=== PATIENT | male | born 1990 | race Caucasian/White ===

== ENCOUNTER 2020-08-02 11:08 | Observation (INO) ==
--- NOTE | 2020-08-02 12:01 | XRay Report ---
XR chest 1V portable CLINICAL HISTORY: aspiration pneumonia COMPARISON STUDY: No previous studies for comparison. FINDINGS: The cardiac and mediastinal contours are normal. There is no evidence of focal pulmonary co nsolidation. There is no evidence of failure. No pleural effusions are visualized.[ IMPRESSION: No active disease in the chest. ACT 112: Negative or not required by law. Electronically signed by: Alex Burks M.D. 08/02/2020 11:59 AM
[2020-08-02] MEDS ORDERED: ALBUT/IPRATROP 3MG/0.5MG NEB 3 ML VIAL NEB ONE (12:24)
[2020-08-02] MEDS ORDERED: methylPREDNISolone 125 MG/2 ML VIAL IV STA (12:28)
[2020-08-02] MEDS ORDERED: PIPERACILLIN/TAZOBACTAM 4.5 GM/120 ML BAG IV ONE (12:28)
[2020-08-02] MEDS ORDERED: NICOTINE 21 MG/24 HR TDSY TD STA (12:28)
[2020-08-02] MEDS ORDERED: levoFLOXacin/D5W 750 MG/150 ML BAG IV STA (12:28)
[2020-08-02] MEDS ORDERED: PIPERACILL/TAZOBAC CONSULT ACTIVE PRN (12:28)
[2020-08-02] MEDS ORDERED: HYDROmorphone INJ 1 MG/ML SYRINGE IV PRN (12:34)
[2020-08-02] MEDS ORDERED: ONDANSETRON INJ 2 MG/ML 2 ML VIAL IV STA (12:34)
[2020-08-02] MEDS ORDERED: ACETAMINOPHEN 1,000 MG/100 ML VIAL IV STA (12:34)
[2020-08-02 12:57] LABS: Basophils # (auto) 0.01 K/uL (0-0.2); Basophils % (auto) 0.1 %; Eosinophils # (auto) 0.01 K/uL (0-0.5); Eosinophils % (auto) 0.1 %; Hematocrit (blood only) 47.3 % (42-52); Hemoglobin 16.8 g/dL (14.0-18.0); Immature Granulocytes # (auto) 0.06 K/uL (0.00-0.02); Immature Granulocytes % (auto) 0.4 %; Lymphocytes # (auto) 0.73 K/uL (1.2-3.4); Mean Corpuscular Hgb Conc 35.5 g/dL (32-36); Mean Corpuscular Volume 92.9 fL (80-100); Mean Platelet Volume 12.4 fL (7.4-10.4); Monocytes % (auto) 2.8 %; Neutrophils # (auto) 13.32 K/uL (1.4-6.5); Neutrophils % (auto) 91.6 %; Platelet Count 228 K/uL (130-400); RDW Coefficient of Variation 12.5 % (11.5-14.5); RDW Standard Deviation 42.5 fL (36.4-46.3); Red Blood Count 5.09 M/uL (4.7-6.1); White Blood Count 14.53 K/uL (4.8-10.8)
[2020-08-02 13:09] LABS: INR 1.1 (0.9-1.1); Partial Thromboplastin Time 27.5 Seconds (21.0-31.0); Prothrombin Time 11.1 Seconds (9.0-12.0)
[2020-08-02 13:16] LABS: Alanine Aminotransferase 74 U/L (12-78); Albumin Level 3.7 gm/dl (3.4-5.0); Aspartate Aminotransferase 53 U/L (15-37); BUN Creatinine Ratio 13.2 (10-20); Blood Urea Nitrogen 14 mg/dl (7-18); Calcium 7.9 mg/dl (8.5-10.1); Carbon Dioxide 22 mmol/L (21-32); Chloride 106 mmol/L (98-107); Creatinine Clr Calc Pharmacy 105.2 ml/min; Est GFR (African American) 112.5; Glucose 117 mg/dl (70-99); Potassium 4.3 mmol/L (3.5-5.1); Sodium 136 mmol/L (136-145)
[2020-08-02 13:21] LABS: Albumin Globulin Ratio 1.1 (0.9-2); Alkaline Phosphatase 102 U/L (45-117); Bilirubin,Total 2.1 mg/dl (0.2-1); Globulin 3.4 gm/dl (2.5-4.0); Total Protein 7.1 gm/dl (6.4-8.2); Troponin I < 0.015 ng/ml (0-0.045)
--- NOTE | 2020-08-02 15:23 | History & Physical Report ---
Date of Service August 02, 2020 Assessment & Plan (1) Hypoxia: Aim O2 sats > 94%, incentive spirometry (2) Aspiration pneumonitis: Further antibiotics for aspiration pneumonia deferred unless still having oxygen requirement tomorrow or other signs of pneumonia. (3) Anxiety: Continue his usual citalopram 20mg and aripiprazole 10mg PO daily. (4) GERD (gastroesophageal reflux disease): Continue famotidine 20mg PO daily Admission and Anticipated Discharge Date Admission Date: 08/02/2020 History of Present Illness Chief Complaint: Shortness of breath and hypoxia Primary Care Provider: Malik Machado Krys Garcia is a 30-year-old male who presents to the ER with shortness of breath and hypoxia after a vomiting episode after his operation today in the surgical center to remove pins from his foot. He reports not taking his usual medications yet this morning. No current shortness of breath but remains hypoxic in the ER therefore recommend admission overnight to assess for progression of aspiration pneumonia. He reports no active infection of the pins prior to removal. No known COVID-19 exposure and tested negative 5 days ago on pre-op screening. No nasal congestion, headache, diarrhea, abdominal pain, fever or chills. Allergies Allergy/AdvReac Type Severity Reaction Status Date / Time cyclobenzaprine AdvReac Unknown unable to Verified 08/02/20 13:02 take with current meds TOMATOES Allergy Unknown BECOMES Uncoded 08/02/20 13:02 NAUSEATED Home Medications Medication Instructions Recorded Confirmed Type aripiprazole 10 mg PO DAILY 08/02/20 08/02/20 History citalopram 20 mg PO DAILY 08/02/20 08/02/20 History famotidine 20 mg PO DAILY 08/02/20 08/02/20 History Past Med/Surg History Medical History Anxiety Social History Smoking Status: Current every day smoker Second Hand Exposure: Yes; Do You Dip or Chew Tobacco: No; Tobacco Cessation Education Requested by Patient: No Hx Alcohol Use: No Hx Substance Use: No Preferred Language: Danish Communication Ability: Effective Director [employer] Required: No Beliefs That Will Affect Care: None Current Living Situation: Family Other Information That Helps Us Care for You: No Feels Safe at Home: Yes Safety Concerns: Feels Safe At This Time Assistive Devices: Crutches Review of Systems Review of Systems: All systems reviewed & are unremarkable except as noted in HPI & below Physical Exam Constitutional: well developed and well nourished; no acute distress Eyes: + anicteric sclerae; normal pupil size ENMT: external ear and nose normal, oropharynx normal Respiratory: normal respiratory effort, lungs clear to auscultation Cardiovascular: RRR, no murmur, no edema Gastrointestinal (Abdomen): normal bowel sounds, soft, nontender, no hepatosplenomegaly Skin: Right ankle surgical dressing, not removed. Psychiatric: Orientation: alert and oriented x 3 Affect: euthymic affect Mood: + anxious mood Results & Data Results & Data ([facility]) Vital Signs (Past 12 Hours) Vital Signs Temp Pulse Pulse Resp BP BP Pulse Ox 08/02/20 13:19 73 18 97 08/02/20 13:11 71 22 132/79 98 08/02/20 13:00 98 08/02/20 11:20 94 08/02/20 11:14 36.8 C 88 24 144/87 H 83 L Diagnostic Findings XR chest 1V portable IMPRESSION: No active disease in the chest. Medications Administered ER medications given: Ondansetron 4 mg IV Acetaminophen 1 g IV Nicotine 21 mg patch Solu-Medrol 60 mg IV Zosyn 4.5 g IV Levaquin 750 mg IV DuoNeb 12 mL nebulizer Dilaudid 1 mg IV ECG Indication: SOB/dyspnea Rate (beats per minute): 89 Rhythm: normal sinus Findings: + other (Possible left atrial enlargement) Comparison ECG Date: no prior available Code Status & VTE Plan Code Status Full VTE Prophylaxis Plan VTE Prophylaxis will be ordered: No Reason for no VTE drug order: Treatment not indicated Reason for no VTE mechanical prophylaxis: Treatment not indicated PG Care Time/CCT Total # of Minutes Spent Total Time Spent with Patient: Total time spent is greater than 50% in coordination of care (as documented) at patient's floor/unit and/or counseling patient: Coding Level of Care Code 51489 OBS Care - Level 2 Diagnoses Hypoxia R09.02 Aspiration pneumonitis J69.0 Anxiety F41.9 GERD (gastroesophageal reflux disease) K21.9
[2020-08-02] MEDS ORDERED: ACETAMINOPHEN 1000 MG/100 ML IV IV ONE (15:42)
--- NOTE | 2020-08-02 15:59 | Electrocardiogram Report ---
Test Reason : Blood Pressure : / mmHG Vent. Rate : 089 BPM Atrial Rate : 089 BPM P-R Int : 170 ms QRS Dur : 076 ms QT Int : 352 ms P-R-T Axes : 039 023 056 degrees QTc Int : 428 ms Normal sinus rhythm Possible Left atrial enlargement Borderline ECG No previous ECGs available Confirmed by Conor Dejesus ([id number]) on 08/02/2020 3:59:24 PM Referred By: REFERRED SELF Confirmed By:Conor Dejesus
[2020-08-02] MEDS ORDERED: ARIPiprazole 10 MG TAB PO STA (16:11)
[2020-08-02] MEDS ORDERED: CITALOPRAM 20 MG TAB PO STA (16:12)
[2020-08-02] MEDS ORDERED: FAMOTIDINE 20 MG TAB PO STA (16:12)
[2020-08-02] MEDS ORDERED: NICOTINE POLACRILEX 2 MG GUM MT PRN (19:30)
[2020-08-02 21:48] LABS: Appearance Urine Clear (Clear); Bilirubin Urine Negative (Negative); Blood Urine Negative (Negative); Color Urine Yellow; Glucose Urine UA Negative (Negative); Ketones Urine Negative (Negative); Leukocyte Esterase Urine Negative (Negative); Nitrite Urine Negative (Negative); Protein Urine Negative (Negative); Specific Gravity Urine 1.007 (1.000-1.030); Urobilinogen Urine Negative (Negative); pH Urine 5.5 (4.5-7.5)
[2020-08-02] MEDS ORDERED: LORazepam 0.5 MG TAB PO PRN (21:50)
[2020-08-03 06:58] LABS: Basophils # (auto) 0.01 K/uL (0-0.2); Basophils % (auto) 0.1 %; Hematocrit (blood only) 45.9 % (42-52); Immature Granulocytes # (auto) 0.04 K/uL (0.00-0.02); Immature Granulocytes % (auto) 0.3 %; Lymphocytes # (auto) 1.69 K/uL (1.2-3.4); Lymphocytes % (auto) 10.7 %; Mean Corpuscular Hemoglobin 32.6 pg (25-34); Mean Corpuscular Hgb Conc 34.9 g/dL (32-36); Mean Corpuscular Volume 93.5 fL (80-100); Mean Platelet Volume 12.2 fL (7.4-10.4); Monocytes # (auto) 1.01 K/uL (0.11-0.59); Monocytes % (auto) 6.4 %; Neutrophils # (auto) 12.99 K/uL (1.4-6.5); Neutrophils % (auto) 82.5 %; Platelet Count 253 K/uL (130-400); RDW Coefficient of Variation 12.6 % (11.5-14.5); RDW Standard Deviation 42.7 fL (36.4-46.3); Red Blood Count 4.91 M/uL (4.7-6.1); White Blood Count 15.74 K/uL (4.8-10.8)
[2020-08-03 07:28] LABS: BUN Creatinine Ratio 13.2 (10-20); Calcium 9.2 mg/dl (8.5-10.1); Creatinine Clr Calc Pharmacy 98.5 ml/min; Est GFR (African American) 103.9; Est GFR (Non-African American) 89.6
[2020-08-03] MEDS: oxyCODONE HCL IR 5 MG TAB (IMMEDIATE RELEASE) PO PRN ×2 (08:30→13:03)
[2020-08-03] MEDS ORDERED: NICOTINE 21 MG/24 HR TDSY TD SCH (09:00)
[2020-08-03] MEDS ORDERED: CITALOPRAM 20 MG TAB PO SCH (09:00)
[2020-08-03] MEDS ORDERED: FAMOTIDINE 20 MG TAB PO SCH (09:00)
[2020-08-03] MEDS ORDERED: ARIPiprazole 10 MG TAB PO SCH (09:00)
[2020-08-03] MEDS ORDERED: CHLORASEPTIC 1.4% SOLN 180 ML BTL MT PRN (12:00)
--- NOTE | 2020-08-03 12:22 | Discharge Summary ---
Date of Service August 03, 2020 Admission HPI Per Admitting Provider Krys Garcia is a 30-year-old male who presents to the ER with shortness of breath and hypoxia after a vomiting episode after his operation today in the surgical center to remove pins from his foot. He reports not taking his usual medications yet this morning. No current shortness of breath but remains hypoxic in the ER therefore recommend admission overnight to assess for progression of aspiration pneumonia. He reports no active infection of the pins prior to removal. No known COVID-19 exposure and tested negative 5 days ago on pre-op screening. No nasal congestion, headache, diarrhea, abdominal pain, fever or chills. Principal Diagnosis Pt states he is feeling much better. He has not been SOB or needed oxygen since yesterday. He is eating without issue, although he notes a sore throat. He is also noting a smear of blood in his sputum when he coughs. No large clots or stand alone blood, just with other mucous and not every time time he spits. Pt denies fever, chest pain, abd pain, n/v/c/d, LE pain or swelling. Discharge Exam Constitutional WD/WN, vitals as above Eyes normal visual queen by confrontation and + anicteric sclerae Neck normal visual inspection and trachea midline Respiratory normal respiratory effort, lungs clear to auscultation Cardiovascular Rate/Rhythm: regular rate and regular rhythm Gastrointestinal (Abdomen) Inspection/Auscultation: abdomen not distended Percussion/Palpation: abdomen soft; abdomen nontender Musculoskeletal Head/Neck/Chest: normocephalic and head atraumatic Skin no rashes, warm and dry Neurologic awake; not confused Speech / Cognition: normal speech Psychiatric A+Ox3, euthymic affect Discharge Data Allergies Allergy/AdvReac Type Severity Reaction Status Date / Time cyclobenzaprine AdvReac Unknown unable to Verified 08/02/20 13:02 take with current meds TOMATOES Allergy Unknown BECOMES Uncoded 08/02/20 13:02 NAUSEATED Consultations 08/02/20 15:06 ED Decision to Admit Stat Hospital Course (1) Hypoxia: Aim O2 sats > 94%, incentive spirometry (2) Aspiration pneumonitis: Further antibiotics for aspiration pneumonia deferred unless still having oxygen requirement tomorrow or other signs of pneumonia As noted on CXR Pt does have a slightly elevated WBC in the setting of surgery and above issues, likely reactionary Afebrile Procal neg on admission, however this was likely drawn too close to the aspiration to give complete merit. Advised pt as noted below that there is a chance that he has a full PNA, but given he has not needed further O2 or had any SOB, it is less likely. Advised to seek further care as noted below if issues arise. Advised to use IS at home for the next 2-4 weeks Blood streaked sputum likely due to rapid extubation with aspiration event Pt advised to monitor this and return to ED if having more krystyna bleeding Advised that this could be irritated further with ongoing smoking Pt states he is down to 5 cigs/day from about 1.5ppd as recently as last month Chloraseptic spray for post-intubation throat irritation (3) Anxiety: Continue his usual citalopram 20mg and aripiprazole 10mg PO daily. (4) GERD (gastroesophageal reflux disease): Continue famotidine 20mg PO daily Total Time Total Time Spent Total Time Spent (In Minutes): >30 Total Time Includes: Examination of the Patient, Discharge Planning, Medication Reconciliation and Other Discharge Plan Discharge Items Patient Disposition: Home - Self-Care Reason For Visit: HYPOXIA, ASPIRATION PNEUMONITIS Discharge Diagnosis: Aspiration pneumonitis Activity: As commented below Activity Comment: as directed by your surgeon Non-emergency contact: Primary Care Provider and Surgeon Call non-emergency contact if: you have any medication questions, your symptoms worsen and your pain is concerning for you Follow-up/Referrals: Malik Machado D.O. [Primary Care Provider] - 08/09/20 1:00 pm Diet: Regular Addtl Attending Provider Instructions: As we discussed, it does not appear that you have a pneumonia at present, but this can take several days to develop after you have an aspiration event while intubated. If you develop fever, cough, chills, trouble breathing, or chest pain, you should seek care with your PCP, an urgent care, or go to the ED. You should also continue to use your incentive spirometer 10 times an hour for the next 3-4 weeks. This will help your lungs to recover from the aspiration event. Pending Studies at Discharge: Yes Studies:: Blood culture Stand-Alone Forms: My [employer], Smoking Cessation Medications and DC Order Prescriptions: New Sore Throat (phenol) 1.4 % Aerosol,Liguori 2 spray MT Q4H PRN (Reason: sore throat) Qty: 177 RF: 0 Continued citalopram 20 mg tablet 20 mg PO DAILY RF: 0 famotidine 20 mg tablet 20 mg PO DAILY RF: 0 aripiprazole 10 mg tablet 10 mg PO DAILY RF: 0 Discharge Orders: Discharge Order (Routine); Ordered 08/03/20 Ordered By: Princess Oliveira/Other Patient Handouts: DVT Post Op Prevention Admission Data Admit Date/Time: 08/02/20 15:37 Attending Provider: Princess Baker Admit Provider: Lavelle Duron Primary Care Provider: Malik Machado Other Providers: Lavelle Duron Other Interventions: Discharge Summary Assessment (RN) Last Done: 08/03/20 14:04 Coding Level of Care Code D/C Day Management >30 mins Diagnoses Hypoxia R09.02 Aspiration pneumonitis J69.0 Anxiety F41.9 GERD (gastroesophageal reflux disease) K21.9
--- NOTE | 2020-08-04 13:44 | Emergency Department Note ---
History of Present Illness General Chief complaint: Shortness of Breath/Dyspnea Time Seen by Provider: 08/02/20 11:25 Source: patient, RN notes reviewed and old records reviewed Mode of arrival: ambulatory Limitations: no limitations History of Present Illness Provider complaint: aspiration Onset (ago): hour(s) 1 Location: chest Maximum Pain Intensity: 8 Current Pain Intensity: 8 Quality: + aching Relieved By: + immobilization and + rest Exacerbated By: + movement Associated symptoms: + nausea/vomiting and + shortness of breath Treatments prior to arrival: other (oxygen) This is a 30-year-old male who presents emergency department complaining of sabine rtness of breath. Patient had a surgery done at the surgical clinic today. Per both EMS as well as doctors reports the patient may have had an aspiration event as he remained hypoxic after his surgery. He was given a breathing treatment in route. Upon arrival to the emergency department patient is complaining of right ankle pain. He reports immobilization makes the pain better however movement makes the pain worse. Home Medications Medication Instructions Recorded Confirmed Type aripiprazole 10 mg PO DAILY 08/02/20 08/02/20 History citalopram 20 mg PO DAILY 08/02/20 08/02/20 History famotidine 20 mg PO DAILY 08/02/20 08/02/20 History phenol [Sore Throat (phenol)] 2 spray MT Q4H PRN #177 ml 08/03/20 Rx Allergies Allergy/AdvReac Type Severity Reaction Status Date / Time cyclobenzaprine AdvReac Unknown unable to Verified 08/02/20 13:02 take with current meds TOMATOES Allergy Unknown BECOMES Uncoded 08/02/20 13:02 NAUSEATED Past Med/Surg History Medical History Anxiety GERD (gastroesophageal reflux disease) Social History Smoking Status: Current every day smoker Second Hand Exposure: Yes; Do You Dip or Chew Tobacco: No; Tobacco Cessation Education Requested by Patient: No Hx Alcohol Use: No Hx Substance Use: No Preferred Language: Indonesian Communication Ability: Effective It Security Analyst Required: No Beliefs That Will Affect Care: None Current Living Situation: Family Other Information That Helps Us Care for You: No Feels Safe at Home: Yes Safety Concerns: Feels Safe At This Time Assistive Devices: Crutches Review of Systems A total of 10 systems reviewed and were otherwise negative Physical Exam VITAL SIGNS - Vital signs and nursing notes were reviewed. GENERAL - 30-year-old male appearing stated age who is in no acute distress. Communicates well with provider and answers questions appropriately. SKIN - Without rashes. HEAD - NC/AT. EYES - PERRL with EOMI bilaterally. Sclera anicteric. Palpebral conjunctiva pink and moist with no injection noted. EARS - No deformities of external structures noted on gross examination bilaterally. No pain elicited with palpation of the tragus bilaterally. External auditory canals without discharge or otorrhea. Tympanic membranes pearly degroot without retraction or bulging. No fluid or purulent material visualized behind the TM. Handle of malleus, umbo, cone of light, pars tensa/flaccid all easily visualized. NOSE - Midline and without cyanosis. No epistaxis or purulent drainage noted. Septum midline without deviation or septal hematoma noted. MOUTH/OROPHARYNX - Without perioral cyanosis. Buccal mucosa pink and moist and without leukoplakia. Tongue midline with equal elevation of palate bilaterally. No tonsillar hypertrophy, erythema, or exudates noted. dentition noted. NECK - Neck with FROM. Supple to palpation. lymphadenopathy noted. No nuchal rigidity. LUNGS - Chest wall symmetric without accessory muscle use, intercostals retrac tions, or central cyanosis. Normal vesicular breath sounds CTA B/L. No wheezes, rales, or rhonchi appreciated. CARDIAC - RRR with S1/S2. No murmur, rubs, or gallops appreciated. ABDOMEN - Abdominal contour without pulsations or visible masses. BS normoactive all four quadrants. No tenderness, palpable masses, hepatosplenomegaly, or ascites noted. EXTREMITIES - No clubbing or peripheral cyanosis. No pretibial edema present. +3/5 radial, posterior tibial, and dorsalis pedis pulses palpated throughout. +5/5 strength noted in UE/LE bilaterally. NEUROLOGIC - Cranial nerves II through XII grossly intact. Sensory intact to light touch throughout. Patellar reflexes +2/4. PSYCH - A&Ox3 and cooperates fully with examiner. Pt is very pleasant and interacts well with examiner. Course Administered Medications Discontinued Medications Acetaminophen (Acetaminophen 1000 Mg/100 Ml Iv) Confirm Administered Dose 1,000 mg IV .STK-MED ONE Stop: 08/02/20 15:43 Last Admin: 08/02/20 15:46 Dose: Not Given Documented by: [id number] Albuterol (Albut/Ipratrop 3mg/0.5mg Neb 3 Ml Vial) 12 ml NEB ONE ONE Stop: 08/02/20 12:25 Last Admin: 08/02/20 13:19 Dose: 12 ml Documented by: [id number] Aripiprazole (Aripiprazole 10 Mg Tab) 10 mg PO ONE STA Stop: 08/02/20 16:12 Last Admin: 08/02/20 16:26 Dose: 10 mg Documented by: [id number] Aripiprazole (Aripiprazole 10 Mg Tab) 10 mg PO DAILY MARJORIE Stop: 09/02/20 08:59 Last Admin: 08/03/20 08:31 Dose: 10 mg Documented by: [id number] Citalopram Hydrobromide (Citalopram 20 Mg Tab) 20 mg PO NOW STA Stop: 08/02/20 16:13 Last Admin: 08/02/20 16:26 Dose: 20 mg Documented by: [id number] Citalopram Hydrobromide (Citalopram 20 Mg Tab) 20 mg PO DAILY MARJORIE Stop: 09/02/20 08:59 Last Admin: 08/03/20 08:32 Dose: 20 mg Documented by: [id number] Famotidine (Famotidine 20 Mg Tab) 20 mg PO NOW STA Stop: 08/02/20 16:13 Last Admin: 08/02/20 16:27 Dose: 20 mg Documented by: [id number] Famotidine (Famotidine 20 Mg Tab) 20 mg PO DAILY MARJORIE Stop: 09/02/20 08:59 Last Admin: 08/03/20 08:32 Dose: 20 mg Documented by: [id number] Hydromorphone HCl (Hydromorphone Inj 1 Mg/Ml Syringe) 1 mg IV Q15M PRN PRN Reason: Pain Stop: 08/16/20 12:33 Last Admin: 08/02/20 12:54 Dose: 1 mg Documented by: [id number] Piperacillin Sod/Tazobactam Sod (Zosyn) 4.5 gm in 120 mls @ 240 mls/hr IV NOW ONE Stop: 08/02/20 12:57 Last Infusion: 08/02/20 14:37 Dose: 0 mls/hr Documented by: [id number] Admin: 12/07/20 12:59 Dose: 240 mls/hr Documented by: [id number] Levofloxacin/Dextrose (Levaquin/D5w) 750 mg in 150 mls @ 100 mls/hr IV NOW STA Stop: 08/02/20 13:57 Last Infusion: 08/02/20 16:05 Dose: 0 mls/hr Documented by: [id number] Admin: 08/02/20 14:35 Dose: 100 mls/hr Documented by: [id number] Acetaminophen (Ofirmev) 1,000 mg in 100 mls @ 400 mls/hr IV NOW STA Stop: 08/02/20 12:48 Last Infusion: 08/02/20 14:25 Dose: 0 mls/hr Documented by: [id number] Admin: 08/02/20 14:00 Dose: 400 mls/hr Documented by: [id number] Lorazepam (Lorazepam 0.5 Mg Tab) 0.5 mg PO Q4H PRN PRN Reason: Anxiety Stop: 09/01/20 21:49 Last Admin: 08/02/20 22:05 Dose: 0.5 mg Documented by: [id number] Methylprednisolone (Methylprednisolone 125 Mg/2 Ml Vial) 60 mg IV NOW STA Stop: 08/02/20 12:29 Last Admin: 08/02/20 12:57 Dose: 60 mg Documented by: [id number] Miscellaneous (Remove Nicoderm Patch) 1 ea N/A DAILY@[id number] [facility] Stop: 09/02/20 08:58 Last Admin: 08/03/20 08:31 Dose: 1 ea Documented by: [id number] Nicotine (Nicotine 21 Mg/24 Hr Tdsy) 21 mg TD NOW STA Stop: 08/02/20 12:29 Last Admin: 08/02/20 12:53 Dose: 21 mg Documented by: [id number] Nicotine (Nicotine 21 Mg/24 Hr Tdsy) 21 mg TD QAM [facility] Stop: 09/02/20 08:59 Last Admin: 08/03/20 08:34 Dose: Not Given Documented by: [id number] Nicotine Polacrilex (Nicotine Polacrilex 2 Mg Gum) 1 piece MT PRN PRN PRN Reason: nicotine craving Stop: 09/01/20 19:29 Last Admin: 08/03/20 08:32 Dose: 1 piece Documented by: [id number] Ondansetron HCl (Ondansetron Inj 2 Mg/Ml 2 Ml Vial) 4 mg IV NOW STA Stop: 08/02/20 12:35 Last Admin: 08/02/20 12:57 Dose: 4 mg Documented by: [id number] Oxycodone HCl (Oxycodone Hcl Ir 5 Mg Tab (Immediate Release)) 5 mg PO Q4H PRN PRN Reason: Pain Stop: 08/16/20 19:13 Last Admin: 08/03/20 13:03 Dose: 5 mg Documented by: [id number] Admin: 08/03/20 08:30 Dose: 5 mg Documented by: [id number] Medical Decision Making Differential Diagnosis Reactive airway disease, pneumonia, pneumothorax, COPD, CHF, infections, cardiac ischemia, pulmonary embolism, musculoskeletal, gastrointestinal, as well as other pathologies. Medical Records Attestation: I reviewed the patient's medical records. Home Medications Current Medication List: was personally reviewed by me Laboratory Data Attestation: I reviewed the patient's lab results. Result diagrams: 08/03/20 06:37 08/03/20 06:37 Lab Results 08/02/20 08/02/20 08/02/20 Range/Units 12:45 12:45 12:45 WBC 14.53 H (4.8-10.8) K/uL RBC 5.09 (4.7-6.1) M/uL Hgb 16.8 (14.0-18.0) g/dL Hct 47.3 (42-52) % MCV 92.9 (80-100) fL MCH 33.0 (25-34) pg MCHC 35.5 (32-36) g/dL RDW Std Deviation 42.5 (36.4-46.3) fL RDW Coeff of Lea 12.5 (11.5-14.5) % Plt Count 228 (130-400) K/uL MPV 12.4 H (7.4-10.4) fL Immature Gran % (Auto) 0.4 % Neut % (Auto) 91.6 % Lymph % (Auto) 5.0 % Lee % (Auto) 2.8 % Eos % (Auto) 0.1 % Baso % (Auto) 0.1 % Neut # (Auto) 13.32 H (1.4-6.5) K/uL Lymph # (Auto) 0.73 L (1.2-3.4) K/uL Lee # (Auto) 0.40 (0.11-0.59) K/uL Eos # (Auto) 0.01 (0-0.5) K/uL Baso # (Auto) 0.01 (0-0.2) K/uL Immature Gran # (Auto) 0.06 H (0.00-0.02) K/uL PT 11.1 (9.0-12.0) Seconds INR 1.1 (0.9-1.1) APTT 27.5 (21.0-31.0) Seconds PTT Ratio 1.0 Sodium 136 (136-145) mmol/L Potassium 4.3 (3.5-5.1) mmol/L Chloride 106 (98-107) mmol/L Carbon Dioxide 22 (21-32) mmol/L Anion Gap 8.0 (3-11) BUN 14 (7-18) mg/dl Creatinine 1.03 (0.6-1.4) mg/dl Est Cr Clr Drug Dosing 105.2 ml/min Est GFR ( Amer) 112.5 Est GFR (Non-Af Amer) 97.0 BUN/Creatinine Ratio 13.2 (10-20) Glucose 117 H (70-99) mg/dl Lactate (0.4-2.0) mmol/L Calcium 7.9 L (8.5-10.1) mg/dl Magnesium 2.0 (1.8-2.4) mg/dl Total Bilirubin 2.1 H (0.2-1) mg/dl AST 53 H (15-37) U/L ALT 74 (12-78) U/L Alkaline Phosphatase 102 (45-117) U/L Troponin I < 0.015 (0-0.045) ng/ml Total Protein 7.1 (6.4-8.2) gm/dl Albumin 3.7 (3.4-5.0) gm/dl Globulin 3.4 (2.5-4.0) gm/dl Albumin/Globulin Ratio 1.1 (0.9-2) Procalcitonin (0-0.5) ng/ml 08/02/20 08/02/20 Range/Units 12:45 12:45 WBC (4.8-10.8) K/uL RBC (4.7-6.1) M/uL Hgb (14.0-18.0) g/dL Hct (42-52) % MCV (80-100) fL MCH (25-34) pg MCHC (32-36) g/dL RDW Std Deviation (36.4-46.3) fL RDW Coeff of Lea (11.5-14.5) % Plt Count (130-400) K/uL MPV (7.4-10.4) fL Immature Gran % (Auto) % Neut % (Auto) % Lymph % (Auto) % Lee % (Auto) % Eos % (Auto) % Baso % (Auto) % Neut # (Auto) (1.4-6.5) K/uL Lymph # (Auto) (1.2-3.4) K/uL Lee # (Auto) (0.11-0.59) K/uL Eos # (Auto) (0-0.5) K/uL Baso # (Auto) (0-0.2) K/uL Immature Gran # (Auto) (0.00-0.02) K/uL PT (9.0-12.0) Seconds INR (0.9-1.1) APTT (21.0-31.0) Seconds PTT Ratio Sodium (136-145) mmol/L Potassium (3.5-5.1) mmol/L Chloride (98-107) mmol/L Carbon Dioxide (21-32) mmol/L Anion Gap (3-11) BUN (7-18) mg/dl Creatinine (0.6-1.4) mg/dl Est Cr Clr Drug Dosing ml/min Est GFR ( Amer) Est GFR (Non-Af Amer) BUN/Creatinine Ratio (10-20) Glucose (70-99) mg/dl Lactate 0.9 (0.4-2.0) mmol/L Calcium (8.5-10.1) mg/dl Magnesium (1.8-2.4) mg/dl Total Bilirubin (0.2-1) mg/dl AST (15-37) U/L ALT (12-78) U/L Alkaline Phosphatase (45-117) U/L Troponin I (0-0.045) ng/ml Total Protein (6.4-8.2) gm/dl Albumin (3.4-5.0) gm/dl Globulin (2.5-4.0) gm/dl Albumin/Globulin Ratio (0.9-2) Procalcitonin < 0.05 (0-0.5) ng/ml Imaging Data Radiologist's Impression: [facility], [phone] XRay Report Patient: PAVEL OLGUIN Date: 08/02/20MR#: [id number]: 32 GARRETT DRAcct ID:[id number]: Date: 1990[facility] Zip: [place], [place] [address]Wju: 30Location: EDSex: MRoom/Bed:Att Phy:Diagnosis: SOBPri Phy: Malik Machado DSawyerService Date: 08/02/20Fa Phy:Interpreting Phy: Alex Burks MDAdmit Phy: Ordering Phy: Flaco Ricardo MD cc: ~ XR chest 1V portable CLINICAL HISTORY: aspiration pneumonia COMPARISON STUDY: No previous studies for comparison. FINDINGS: The cardiac and mediastinal contours are normal. There is no evidence of focal pulmonary consolidation. There is no evidence of failure. No pleural effusions are visualized.[ IMPRESSION: No active disease in the chest. ACT 112: Negative or not required by law. Electronically signed by: Alex Burks M.D. 08/02/2020 11:59 AM Dictated: 08/02/20 1159Transcribed: 08/02/20 1159 ECG Data Attestation: I personally reviewed and interpreted this ECG as follows: Indication: + chest pain Rate (beats per minute): 89 Rhythm: + normal sinus ECG Intervals/blocks: + Normal QT-c (428) ECG [place]: + Normal ECG ST segments: no ST depression and no ST elevation Comparison ECG Date: no prior available MDM Narrative Patient was seen and evaluated as above in room B2. Review was performed of nursing notes and vital signs. I did review pertinent previous visits and patient history. After obtaining a thorough history and physical examination the above work up was performed. This is a 30-year-old male who presents the emergency department hypoxic after surgery today. Based on this I am concerned that the patient may have aspirated. He was started on broad-spectrum antibiotics and given breathing treatments here in the emergency department. Chest x-ray does not show any evidence of pneumonia. Because the patient continues to require oxygen I did discuss the case with the hospitalist service who did agree to admit the patient. He does not have an elevation his white blood cell count. Patient and family are in agreement with treatment plan. While in the department, I personally reevaluated the patient several times and each time the patient was found to be resting comfortably. The patient was educated upon management, educated upon todays findings/results, educated upon importance of follow up from today's visit, educated upon symptoms in which to return, had questions answered prior to discharge, verbalized understanding, and was discharged home in good condition. An order was placed for continuous cardiac monitoring. The monitor shows a rate of 81 with Normal Sinus rhythm. The patient was evaluated during a period of high volume and high acuity while the hospital was at overcapacity during the global COVID-19 pandemic, and that diagnosis was suspected/considered upon their initial presentation. Their evaluation, treatment and testing was consistent with current guidelines for p atients who present with complaints or symptoms that may be related to COVID-19. Impression & Plan Aspiration pneumonitis Discharge Plan Visit Data Chief Complaint: Shortness of Breath/Dyspnea ED Provider: Flaco Ricardo Discharge Problem: Aspiration pneumonitis Patient Disposition: Admitted As Inpatient
== END 2020-08-03 14:23 | disposition home or self-care (01) ==
LOC: ED 11:08 → 3W 15:37 → INTOOBSV 15:37 → SUATTDRO 15:37 → 3W 19:15